=== PATIENT | male | born 1965 | race African-American/Black ===

== ENCOUNTER 2022-04-12 18:27 | Inpatient (IN) | payer SELFPAY ==
[2022-04-12 21:00] LABS: Bilirubin Negative (Negative); Blood, Urine Negative (Negative); Clarity Clear (Clear); Glucose, Urine (Dipstick) Normal (Negative); Ketone, Urine Negative (Negative); Leukocyte Negative Leu/uL (Negative); Nitrite Negative (Negative); Protein, Urine (Dipstick) Negative (Neg-Trace); Specific Gravity, Urine 1.026 (1.002-1.036); Urobilinogen Normal mg/dL (Less than 2)
[2022-04-12 21:22] LABS: #Basophils 0.1 thou/uL (0.0-0.2); #Lymphocytes 1.3 thou/uL (1.20-3.40); #Monocytes 0.9 thou/uL (0.11-0.59); #Neutrophils 9.4 thou/uL (1.40-6.50); %Basophils 0.6 % (0.0-1.0); %Eosinophils 0.4 % (0.0-10.0); %Lymphocytes 11.3 % (21.0-51.0); %Monocytes 7.4 % (0.0-10.0); %Neutrophils 80.4 % (42.0-75.0); Mean Corpuscular HGB CONC 33.3 g/dL (32.0-36.0); Mean Corpuscular Hemoglobin 31.5 pg (27.0-31.0); Mean Corpuscular Volume 94.5 fl (78.0-98.0); Mean Platelet Volume 8.8 fL (7.4-10.4); Platelet Count 200 thou/uL (130-400); RBC Distribution Width 12.8 % (11.5-14.5); Red Blood Cell (RBC) Count 4.76 mill/uL (4.70-6.10); White Blood Cell (WBC) Count 11.7 thou/uL (4.8-10.8)
[2022-04-12 21:24] VITALS: BMI 23.0
[2022-04-12 21:25] LABS: PTT 30.7 sec (22.9-36.1)
[2022-04-12 21:32] LABS: ALT (SGPT) 24 U/L (8-55); AST (SGOT) 17 U/L (5-34); Albumin 4.5 g/dL (3.5-5.0); Alkaline Phosphatase 67 U/L (40-110); Anion Gap 12 mmol/L (10-20); BUN (Urea Nitrogen) 20 mg/dL (8.4-25.7); Bilirubin, Total 0.3 mg/dL (0.2-1.2); Calc. Creatinine Clearance 104 mL/min (70-130); Calcium 9.3 mg/dL (7.8-10.44); Carbon Dioxide 23 mmol/L (22-29); Chloride 107 mmol/L (98-107); Estimated GFR 103; Globulin 3.5 g/dL (2.4-3.5); Glucose 105 mg/dL (70-105); Lipase 33 U/L (8-78); Sodium 138 mmol/L (136-145)
[2022-04-12] MEDS ORDERED: TETANUS, DIPHTHERIA TOX,ADULT (TDVAX) 0.5 ML VIAL IM ONE (21:37)
[2022-04-12] MEDS ORDERED: Ondansetron PF 4 MG/2 ML Vial IVP PRN (21:37)
[2022-04-12] MEDS ORDERED: Dextrose 50% Abboject 50 ML SYRINGE SLOW IVP PRN (21:37)
[2022-04-12] MEDS ORDERED: Dextrose 5% in Water 1,000 ML IV PRN (21:37)
[2022-04-12] MEDS ORDERED: Morphine 4 MG/ML VIAL SLOW IVP PRN (21:37)
[2022-04-12] MEDS ORDERED: hydrALAZINE 20 MG/ML VIAL SLOW IVP PRN (21:37)
[2022-04-12] MEDS ORDERED: Cyclobenzaprine 10 MG TAB PO PRN (21:39)
[2022-04-12] MEDS ORDERED: Gabapentin 300 MG CAP PO SCH (22:00)
[2022-04-12] MEDS: Ibuprofen 200 MG TAB PO SCH (22:03)
[2022-04-12 22:57] LABS: SARS-CoV-2 NAA Rapid Test Not Detected (NotDetected)
[2022-04-12] MEDS: Acetaminophen 500 MG TAB PO SCH (23:10)
[2022-04-12] MEDS: traMADol HCl 50 MG TAB PO SCH (23:10)
[2022-04-13] MEDS: Ibuprofen 200 MG TAB PO SCH ×2 (06:04→15:02)
[2022-04-13] MEDS: traMADol HCl 50 MG TAB PO SCH ×2 (06:04→12:05)
[2022-04-13] MEDS: Acetaminophen 500 MG TAB PO SCH ×2 (06:04→12:05)
[2022-04-13] MEDS ORDERED: CEFAZOLIN 2 GM in Sodium Chloride 0.9% 100 ML IVPB SCH ×2 (08:00→16:00)
[2022-04-13] MEDS ORDERED: Sodium Chloride 0.9% 100 ML ONE (08:48)
[2022-04-13] MEDS ORDERED: CEFAZOLIN 2 GM VIAL ONE (08:48)
[2022-04-13] MEDS ORDERED: FENTANYL 50 MCG/ML 1 ML VIAL ONE (08:51)
[2022-04-13] MEDS ORDERED: Midazolam HCl 2 mg/2 ml Vial ONE (08:51)
[2022-04-13] MEDS ORDERED: Ropivacaine 0.5% HCl/PF (150 MG/30 ML VIAL) ONE ×2 (08:52→09:12)
[2022-04-13] MEDS ORDERED: fentaNYL PF 100 MCG/2 ML SYRINGE ONE (08:52)
[2022-04-13] MEDS ORDERED: Senokot S 8.6-50 MG TAB PO SCH (09:00)
[2022-04-13] MEDS ORDERED: Polyethylene Glycol 3350 17 GM Packet PO SCH (09:00)
[2022-04-13] MEDS ORDERED: Famotidine 20 MG TAB PO SCH (09:00)
[2022-04-13] MEDS ORDERED: Ondansetron PF 4 MG/2 ML Vial ONE (09:12)
[2022-04-13] MEDS ORDERED: PROPOFOL 200 MG/20 ML VIAL ONE (09:12)
[2022-04-13] MEDS ORDERED: Dexamethasone 20 MG/5 ML VIAL ONE (09:12)
[2022-04-13] MEDS: Gabapentin 300 MG CAP PO SCH ×2 (09:23→15:01)
[2022-04-13] MEDS ORDERED: Ondansetron HCl/PF 4 MG/2 ML Vial IVP PRN (11:03)
[2022-04-13] MEDS ORDERED: Promethazine HCl 25 MG/ML VIAL IVPB PRN (11:03)
[2022-04-13] MEDS ORDERED: Promethazine HCl 25 MG/ML VIAL IM PRN (11:03)
[2022-04-13 13:35] VITALS: BP 138/85; TEMP 96.8
== END 2022-04-13 16:45 | disposition home or self-care (01) | DRG 517 ==
LOC: ERS 18:27 → SURG A 20:33
PROVIDERS: ADMIT Specialist; ATTEND Specialist
PROC: 0QSF04Z Reposition Left Patella with Internal Fixation Device, Open Approach (ICD-10-PCS; principal; 2022-04-13)
DX: S82.042A Displaced comminuted fracture of left patella, initial encounter for closed fracture (principal); W18.30XA Fall on same level, unspecified, initial encounter; Z87.891 Personal history of nicotine dependence
CPT/HCPCS: 36415; 71045; 80053; 81003; 83690; 85025; 85610; 85730; 93005; C1713; C1769; J1100; J2250; J2405; J2704; J2795; J3010; J3490; U0002

== ENCOUNTER 2025-02-03 12:24 | Emergency (ER) | payer BC, OTHER ==
[2025-02-03 14:23] LABS: Bacteria/HPF None Seen HPF (None Seen); CAUTI Indications for Culture Pelvic or flank pain; Glucose, Urine (Dipstick) Normal (Negative); Leukocyte Negative Leu/uL (Negative); Protein, Urine (Dipstick) Negative (Neg-Trace); RBC/HPF 0-3 HPF (0-3); Specific Gravity, Urine 1.025 (1.002-1.036); WBC/HPF 0-3 HPF (0-3)
[2025-02-03 14:24] LABS: Urine Culture Reflex No No
[2025-02-03] MEDS ORDERED: cefTRIAXone (ROCEPHIN) 500 MG VIAL ONE (15:08)
[2025-02-03] MEDS ORDERED: Azithromycin 250 MG TAB ONE (15:08)
[2025-02-03 22:17] LABS: Chlam.trachomatis by PCR,Urine Not Detected (NotDetected); GC N.gonorrhoeae PCR,UrineVOID Not Detected (NotDetected)
== END 2025-02-03 16:14 | disposition home or self-care (01) ==
LOC: ERS 12:24
DX: N34.1 Nonspecific urethritis (principal); Z87.891 Personal history of nicotine dependence
CPT/HCPCS: 81001; 87491; 87591; 96372; 99283; J0696